=== PATIENT | male | born 1945 | race Caucasian/White ===

== ENCOUNTER 2019-02-20 06:49 | Day surgery (SDC) | payer OTHER ==
[~2019-02-20] VITALS: Ht 177.8 cm; Wt 89.8 kg
[2019-02-20] VITALS (7 sets, daily range): BP systolic 133–147; BP diastolic 57–66
[~2019-02-20 06:49] MED LIST: CHOL200016 PO; CYAN250014 PO; FINA5TAB41 PO; FISH1CAP27 PO; NAPR-1023 PO; OXYB15TA18 PO; PANT20TA12 PO; SODIUM CHLORIDE 0.9% 1000ML 1,000 ML IV ONE; TAMS-1 PO
[2019-02-20] MEDS ORDERED: PROPOFOL 10 MG/ML 20ML VIAL IV ONE (08:41)
[2019-02-20] MEDS ORDERED: LIDOCAINE HCL 1% 20 ML VIAL ONE (08:43)
--- NOTE | 2019-02-20 09:15 | NUR ---
dc patient ready to go home, waiting for ride to go home. dc instructions given to pt , instructed to f/u with dr. palumbo. and continue home meds. pt fully awake , denies any pain or discomforts.
--- NOTE | 2019-02-20 12:15 | NUR ---
DC PT DC HOME VIA WC,NO DISTRESS NOTED. PT DENIED ANY PAIN OR DISCOMFORTS. ACCOMPANIED BY SPOUSE
== END 2019-02-20 12:15 | disposition home or self-care (01) ==
LOC: ENDO 06:49 → DAH 06:49 → ENDO 12:15
PROVIDERS: ATTEND Internal Medicine
DX: R12 Heartburn (principal); K29.50 Unspecified chronic gastritis without bleeding; K22.8 Other specified diseases of esophagus; K31.89 Other diseases of stomach and duodenum; F41.9 Anxiety disorder, unspecified; D69.8 Other specified hemorrhagic conditions; F32.9 Major depressive disorder, single episode, unspecified; E78.5 Hyperlipidemia, unspecified; Z86.010 Personal history of colon polyps; Z79.899 Other long term (current) drug therapy
CPT/HCPCS: 43239; 88305; A4215; A4221; A4222; A4223; A4606; A4620; A4663; J2704; J7030 ×2